=== PATIENT | male | born 1995 | race Caucasian/White ===

== ENCOUNTER 2016-09-05 10:09 | Emergency (ER) | payer OTHER ==
[~2016-09-05] VITALS: Ht 172.7 cm; Wt 83.9 kg
[2016-09-05 10:16] VITALS: BP 148/82
--- NOTE | 2016-09-05 10:20 | NUR ---
PATIENT TO BED 3 AT THIS TIME.
--- NOTE | 2016-09-05 10:25 | NUR ---
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 DENIES N/V/D; SKIN IS PINK/WARM/DRY : SMALL OPEN WOUND L WRIST NO BLEEDING; AAOX4 WITH EVEN AND STEADY GAIT; LUNGS CLEAR BL; HR EVEN AND REGULAR; PT DENIES ANY FEVER, CP, SOB, OR COUGH AT THIS TIME; PATIENT STATES PAIN OF 5/10 AT THIS TIME; VSS; PATIENT POSITIONED FOR COMFORT; HOB ELEVATED; BEDRAILS UP X2; BED DOWN. ER MD MADE AWARE OF PT STATUS.
--- NOTE | 2016-09-05 10:26 | NUR ---
ER MD DR CHICAS EVALUATING PT AT BEDSIDE.
[2016-09-05 11:12] VITALS: BP 150/73
--- NOTE | 2016-09-05 11:12 | NUR ---
Patient discharged with STABLE V/S; BP 150/73; NO S/S OF HTN, HEADACHE, OR DIZZINESS; Written and verbal after care instructions given and explained. Patient verbalized understanding. Ambulatory with to car. All questions addressed prior to discharge. Advised to follow up with PMD.
== END 2016-09-05 11:12 | disposition home or self-care (01) ==
LOC: MED 10:18
DX: S61.512A Laceration without foreign body of left wrist, initial encounter (principal); W31.0XXA Contact with mining and earth-drilling machinery, initial encounter; Y93.89 Activity, other specified; Y92.89 Other specified places as the place of occurrence of the external cause; Y99.8 Other external cause status

== ENCOUNTER 2017-02-20 09:25 | Emergency (ER) | payer MEDICAID, OTHER ==
[~2017-02-20] VITALS: Ht 170.2 cm; Wt 84.4 kg
[2017-02-20 09:37] VITALS: BP 127/72
--- NOTE | 2017-02-20 09:43 | NUR ---
Patient ambulated to bed 6. RN evaluating patient at bedside.
--- NOTE | 2017-02-20 10:01 | NUR ---
21/M BIB GIRLFRIEND TO ED C/O 10 CHARLES RADIATING BEHIND BILAT EYES X2DAYS WITH NASUEA. STS WORSENING WITH LIGHT AND MOVEMENT WITH BODYACHES. DENIES HX. DENIES N/V/D; SKIN IS PINK/WARM/DRY; AAOX4 WITH EVEN AND STEADY GAIT; LUNGS CLEAR BL; HR EVEN AND REGULAR; PT DENIES ANY FEVER, CP, SOB, OR COUGH AT THIS TIME; PATIENT STATES PAIN OF 10/10 AT THIS TIME; VSS; PATIENT POSITIONED FOR COMFORT; HOB ELEVATED; BEDRAILS UP X2; BED DOWN. ER MD MADE AWARE OF PT STATUS.
--- NOTE | 2017-02-20 10:22 | NUR ---
Patient appears to be SLEEPING comfortably in bed. Vital Signs within normal limits. Respirations even and unlabored.WILL CONTINUE TO MITOR.
--- NOTE | 2017-02-20 10:30 | NUR ---
Dr. Gooden evaluating patient at bedside.
[2017-02-20] MEDS ORDERED: KETOROLAC 60 MG/2 ML VIAL IM ONE (10:40)
--- NOTE | 2017-02-20 10:47 | NUR ---
PT TAKEN TO X RAY
--- NOTE | 2017-02-20 11:04 | NUR ---
BACK FROM X RAY
--- NOTE | 2017-02-20 11:05 | NUR ---
PT STS HEADACHE 03/24 . ADMINISTERED MED PER MD ORDER. PT TOLERATED PROCEDURE WELL.
--- NOTE | 2017-02-20 11:25 | NUR ---
PT STS PAIN 5/10.Patient appears to be resting comfortably in bed. Vital Signs within normal limits. Respirations even and unlabored.WILL CONTINUE TO MONITOR.
--- NOTE | 2017-02-20 12:05 | NUR ---
Dr. Gooden reevaluating patient at bedside.
[2017-02-20 12:12] VITALS: BP 119/68
== END 2017-02-20 12:12 | disposition home or self-care (01) ==
LOC: MED 09:25
DX: S09.90XA Unspecified injury of head, initial encounter (principal); R03.0 Elevated blood-pressure reading, without diagnosis of hypertension; R11.0 Nausea; V89.2XXA Person injured in unspecified motor-vehicle accident, traffic, initial encounter; Y93.89 Activity, other specified; Y92.415 Exit ramp or entrance ramp of street or highway as the place of occurrence of the external cause; Y99.8 Other external cause status
CPT/HCPCS: 70250; 72040; 96372; 99284; J1885

== ENCOUNTER 2017-02-20 23:50 | Emergency (ER) | payer MEDICAID ==
[~2017-02-20] VITALS: Ht 170.2 cm; Wt 84.8 kg
[2017-02-20 23:54] VITALS: BP 125/65
--- NOTE | 2017-02-21 00:30 | NUR ---
PT TAKEN TO BED 6
--- NOTE | 2017-02-21 00:31 | NUR ---
21/M C/O HEADACHE SINCE THIS MORNING. PT STATES HE WAS SEEN HERE THIS AM FOR HEADACHE AND GIVEN IBUPROFEN AND IS NOW THROWING UP. DENIES FEVER OR CHILLS. AOX4, AMBULATES WITH STEADY GAIT. NO VOMITING NOTED AT THIS TIME.
--- NOTE | 2017-02-21 00:50 | NUR ---
Dr. Paniagua evaluating patient at bedside.
[2017-02-21] MEDS: KETOROLAC 60 MG/2 ML VIAL IM ONE (00:56)
--- NOTE | 2017-02-21 00:57 | NUR ---
Warm blanket provided. Position of comfort. VSS. No distress noted.
--- NOTE | 2017-02-21 01:32 | NUR ---
Patient appears to be resting comfortably in bed. VSS.
[2017-02-21 01:57] VITALS: BP 123/67
--- NOTE | 2017-02-21 01:57 | NUR ---
Patient discharged with v/s stable. Written and verbal after care instructions given and explained. Patient verbalized understanding. Ambulatory with steady gait. All questions addressed prior to discharge. Advised to follow up with PMD.
== END 2017-02-21 01:57 | disposition home or self-care (01) ==
LOC: MED 23:50
DX: F07.81 Postconcussional syndrome (principal)
CPT/HCPCS: 70450; 96372; 99284; J1885

== ENCOUNTER 2019-02-10 20:21 | Emergency (ER) | payer SELFPAY ==
[~2019-02-10] VITALS: Ht 170.2 cm; Wt 88.5 kg
[2019-02-10 20:25] VITALS: BP 135/77
--- NOTE | 2019-02-10 20:26 | NUR ---
23 YO MALES COMES TO ED FOR C/O L HAND; FINGERS SWELLING. PT STATES HE WAS WORKING ON CAR AND HAD BUG BITES X 3 DAYS AGO, WITH SWELLING LATER ON IN THE DAY. PT STATES SWELLING WORST TODAY. PT HAS 7/10 TINGLING RADIATING TO L ARM. PT DENIES FEVER/CHILLS. LIMITED ROM TO L HAND. BRANDTRNEY LOCKED IN LOWEST POSITION. WILL UPDATE ERMD. HX: DENIES ALLERGIES:DENIES
[2019-02-10] MEDS ORDERED: ceFAZolin 1,000 MG VIAL IM ONE (21:00)
[2019-02-10] MEDS ORDERED: WATER STERILE 10 ML MC ONE (21:17)
--- NOTE | 2019-02-10 22:12 | NUR ---
Patient discharged with v/s stable. Written and verbal after care instructions given and explained BY DR ESPINO Patient alert, oriented and verbalized understanding of instructions. Ambulatory with steady gait. All questions addressed prior to discharge. ID band removed. Patient advised to follow up with PMD. Rx of KEFLEX given. Patient educated on indication of medication including possible reaction and side effects BY DR. ESPINO. Opportunity to ask questions provided and answered BY DR ESPINO.
[2019-02-10 22:15] VITALS: BP 135/77
== END 2019-02-10 22:12 | disposition home or self-care (01) ==
LOC: MED 20:21
DX: S60.461A Insect bite (nonvenomous) of left index finger, initial encounter (principal); S60.463A Insect bite (nonvenomous) of left middle finger, initial encounter; S60.465A Insect bite (nonvenomous) of left ring finger, initial encounter; L03.012 Cellulitis of left finger; W57.XXXA Bitten or stung by nonvenomous insect and other nonvenomous arthropods, initial encounter; Y93.89 Activity, other specified; Y92.89 Other specified places as the place of occurrence of the external cause; Y99.8 Other external cause status
CPT/HCPCS: 90471; 90715; 96372; 99283; J0690

== ENCOUNTER 2019-04-15 10:11 | Emergency (ER) | payer MEDICAID ==
[~2019-04-15] VITALS: Ht 170.2 cm; Wt 47.6 kg
[2019-04-15 10:17] VITALS: BP 147/95
[2019-04-15] MEDS: ACETAMINOPHEN EXTRA STRENGTH 500 MG TAB PO ONE (12:09)
[2019-04-15] MEDS: TRANEXAMIC ACID 1,000 MG/10 ML VIAL MC ONE (12:38)
[2019-04-15 14:44] VITALS: BP 147/75
== END 2019-04-15 14:44 | disposition home or self-care (01) ==
LOC: MED 10:11
DX: R04.0 Epistaxis (principal)
CPT/HCPCS: 30901; 99284; J3490

== ENCOUNTER 2020-10-22 21:41 | Emergency (ER) | payer MEDICAID, OTHER ==
[~2020-10-22] VITALS: Ht 172.7 cm; Wt 90.7 kg
[2020-10-22 21:56] VITALS: BP 127/82
--- NOTE | 2020-10-22 21:56 | NUR ---
TO BED AMBULATORY
--- NOTE | 2020-10-22 22:40 | NUR ---
25 Y/O MALE PRESENTS TO ER WITH C/O HEMATURIA X 1 DAY. 0/10 PAIN. PT STATES HE HAS HAD 3 VOIDS TODAY WITH BLOOD. PT ALSO STATES HE HAS HAD SOME CLEAR PENILE DISCHARGE. NOT SURE IF ANY EXPOSURE TO STD'S. DENIES INJURY TO BACK OR GENITAL AREA, PAINFUL URINATION, N/V/D, FEVER, DIZZINESS, HEADACHE, SOB, COUGH. A&O X4, VSS, R/R EQUAL, AND UNLABORED. SIDE RAIL X1, BED IN LOW POSITION, WILL CONTINUE TO MONITOR. NKDA PMH: TESTICULAR TORSION X 5YRS AGO
[2020-10-22] MEDS ORDERED: cefTRIAXone 500 MG in LIDOCAINE MPF 1% 1 ML IM ONE (22:45)
[2020-10-22] MEDS ORDERED: LIDOCAINE MPF 1% 5 ML ONE (22:56)
[2020-10-22] MEDS ORDERED: cefTRIAXone 500 MG VIAL ONE (22:56)
[2020-10-22 22:58] LABS: APPEARANCE,URINE SL CLOUDY (CLEAR); BILIRUBIN,URINE NEGATIVE (NEGATIVE); BLOOD, URINE 3+ (NEGATIVE); COLOR,URINE YELLOW (YELLOW); LEUKOCYTE ESTERASE ,URINE 2+ (NEGATIVE); NITRITE, URINE NEGATIVE (NEGATIVE); UGLUCOSE NEGATIVE (NEGATIVE)
[2020-10-22] MEDS ORDERED: PYR100 PO (23:09)
[2020-10-22] MEDS ORDERED: DOXY100C9 PO (23:09)
[2020-10-22 23:20] LABS: RBC,URINE 20-50 /HPF (0-5); WBC,URINE TOO MANY TO COUNT /HPF (0-5)
[2020-10-22 23:24] LABS: BARBITURATE, URINE NEGATIVE ng/ml (NEG <=200)
[2020-10-22 23:25] LABS: BENZODIAZEPINE, URINE NEGATIVE ng/mL (NEG <=200); CANNABINOID, URINE NEGATIVE ng/mL (NEG <=50); COCAINE, URINE NEGATIVE ng/mL (NEG <=300); OPIATE, URINE NEGATIVE ng/mL (NEG <=2000); PHENCYCLIDINE SCREEN,URINE NEGATIVE ng/mL (NEG <=25)
--- NOTE | 2020-10-22 23:25 | NUR ---
Patient discharged with v/s stable. Written and verbal after care instructions given and explained. Patient alert, oriented and verbalized understanding of instructions. Ambulatory with steady gait. All questions addressed prior to discharge. ID band removed. Patient advised to follow up with PMD. Rx of DOXYCYCLINE; PYRIDIUM given. Patient educated on indication of medication including possible reaction and side effects. Opportunity to ask questions provided and answered.
[2020-10-22 23:26] VITALS: BP 127/82
--- NOTE | 2020-10-26 09:05 | NUR ---
LATE ENTRY---Culture results received from lab. Pt Gonorrhoeae POSITIVE. Results shown to Dr. Glass.
== END 2020-10-22 23:25 | disposition home or self-care (01) ==
LOC: MED 21:41
DX: N34.2 Other urethritis (principal)
CPT/HCPCS: 36415; 80305; 81001; 87086; 96372; 99283; J0696; J2001; 87491

== ENCOUNTER 2021-01-12 10:59 | Emergency (ER) | payer OTHER ==
[~2021-01-12] VITALS: Ht 177.8 cm; Wt 86.2 kg
[~2021-01-12 10:59] MED LIST: DOXY100C9 PO; PYR100 PO
[2021-01-12 11:01] VITALS: BP 156/72
--- NOTE | 2021-01-12 11:02 | NUR ---
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 BLEEDING CONTROLLED AT THIS TIME. PATIENT DENIES PAIN JUST FEELING IN SHOCK. PALPATION CAUSES DISCOMFORT. AAOX4. VSS. NO PMH NKDA
[2021-01-12] MEDS ORDERED: LIDOCAINE/EPI 1% 1:100000 20 ML VIAL INJ ONE (11:05)
[2021-01-12] MEDS ORDERED: HYDROcodone/APAP 5/325 MG 1 TAB TAB PO ONE (11:05)
--- NOTE | 2021-01-12 11:07 | NUR ---
RAD at bedside.
--- NOTE | 2021-01-12 11:50 | NUR ---
LEODAN MORENO at bedside for procedure
[2021-01-12] MEDS ORDERED: BACITRACIN OINT 500 UNITS/GM PKT TP ONE ×2 (12:39→12:45)
--- NOTE | 2021-01-12 12:45 | NUR ---
ERMD at bedside for re-examination of patient
[2021-01-12] MEDS ORDERED: CEPH-588 PO (13:03)
[2021-01-12] MEDS ORDERED: cephALEXin 500 MG CAP PO ONE (13:05)
[2021-01-12 13:20] VITALS: BP 144/74
== END 2021-01-12 13:20 | disposition home or self-care (01) ==
LOC: MED 10:59
DX: S81.011A Laceration without foreign body, right knee, initial encounter (principal); W26.8XXA Contact with other sharp object(s), not elsewhere classified, initial encounter; Y93.89 Activity, other specified; Y92.89 Other specified places as the place of occurrence of the external cause; Y99.8 Other external cause status
CPT/HCPCS: 12002; 73590; 99283; J2001; 73560; 99284

== ENCOUNTER 2021-10-21 18:14 | Emergency (ER) | payer OTHER ==
[~2021-10-21] VITALS: Ht 172.7 cm; Wt 98.4 kg
[~2021-10-21 18:14] MED LIST changes: +CEPH-588 PO; +DOXY-690 PO; -DOXY100C9 PO
[2021-10-21 18:17] VITALS: BP 153/98
[2021-10-21] MEDS ORDERED: BACITRACIN OINT 500 UNITS/GM PKT TP ONE (19:15)
[2021-10-21] MEDS ORDERED: AMOX-999 PO (19:32)
[2021-10-21] MEDS ORDERED: NAPR-54 PO (19:32)
[2021-10-21 19:41] VITALS: BP 153/98
--- NOTE | 2021-10-21 19:41 | NUR ---
Patient discharged with v/s stable. Written and verbal after care instructions given and explained. Patient alert, oriented and verbalized understanding of instructions. Ambulatory with steady gait. All questions addressed prior to discharge. ID band removed. Patient advised to follow up with PMD. Rx of AMOXICILLIN NAPROXEN given. Patient educated on indication of medication including possible reaction and side effects. Opportunity to ask questions provided and answered.
== END 2021-10-21 19:44 | disposition home or self-care (01) ==
LOC: MED 18:14
DX: S61.252A Open bite of right middle finger without damage to nail, initial encounter (principal); Z79.899 Other long term (current) drug therapy; W54.0XXA Bitten by dog, initial encounter; Y93.89 Activity, other specified; Y92.89 Other specified places as the place of occurrence of the external cause; Y99.8 Other external cause status
CPT/HCPCS: 99283

== ENCOUNTER 2021-11-14 03:59 | Emergency (ER) | payer OTHER ==
[~2021-11-14] VITALS: Ht 160 cm; Wt 102.1 kg
[~2021-11-14 03:59] MED LIST changes: +AMOX-999 PO; +NAPR-54 PO
[2021-11-14] MEDS ORDERED: DICYCLOMINE HCL LIQUID 20 MG, ALUMINUM HYD/MAG/SIMETHICONE 30 ML, LIDOCAINE VISCOUS 2% ... PO ONE ×3 (04:10)
[2021-11-14 04:20] VITALS: BP 148/77
--- NOTE | 2021-11-14 04:20 | NUR ---
PATIENT AMBULATORY TO BED.
[2021-11-14] MEDS ORDERED: DICYCLOMINE HCL LIQUID 10 MG/5 ML UDC ONE (04:43)
[2021-11-14] MEDS ORDERED: ALUMINUM HYD/MAG/SIMETHICONE 30 ML UDC ONE (04:43)
--- NOTE | 2021-11-14 04:45 | NUR ---
xray at bedside
--- NOTE | 2021-11-14 05:02 | NUR ---
26 y/o m bib self for heartburn x3 days . pt wokeup from sleep with pain in chest. pt also states bloating . pt denies n/f/v/sob/d/ cough. pt states he got in an accident and has a hernia. pt states no pain at hernia site. pt states pain / allergies:NKA pmh: none
[2021-11-14] MEDS ORDERED: BEN10 PO (06:09)
[2021-11-14] MEDS ORDERED: MAG-27 PO (06:09)
[2021-11-14] MEDS ORDERED: DOCU-299 PO (06:09)
[2021-11-14 06:18] VITALS: BP 148/77
--- NOTE | 2021-11-14 06:18 | NUR ---
Patient discharged with v/s stable. Written and verbal after care instructions given and explained. Patient alert, oriented and verbalized understanding of instructions. Ambulatory with steady gait. All questions addressed prior to discharge. ID band removed. Patient advised to follow up with PMD. Rx of JONATHAN KHAN MYLANTA given. Opportunity to ask questions provided and answered.
== END 2021-11-14 06:18 | disposition home or self-care (01) ==
LOC: MED 03:59
DX: K21.9 Gastro-esophageal reflux disease without esophagitis (principal); Z79.899 Other long term (current) drug therapy; Z79.1 Long term (current) use of non-steroidal anti-inflammatories (NSAID); Z79.2 Long term (current) use of antibiotics
CPT/HCPCS: 74018; 99283; Q0092

== ENCOUNTER 2021-12-11 00:37 | Emergency (ER) | payer OTHER ==
[~2021-12-11] VITALS: Ht 167.6 cm; Wt 101.2 kg
[~2021-12-11 00:37] MED LIST changes: +BEN10 PO; +DOCU-299 PO; +MAG-27 PO
[2021-12-11 00:50] VITALS: BP 142/86
--- NOTE | 2021-12-11 00:54 | NUR ---
PATIENT TO LOBBY
--- NOTE | 2021-12-11 01:17 | NUR ---
PT TAKEN TO BED 11
--- NOTE | 2021-12-11 01:18 | NUR ---
Dr. Paniagua examining patient.
[2021-12-11] MEDS ORDERED: IBUPROFEN 600 MG TAB PO ONE ×2 (01:20→01:50)
--- NOTE | 2021-12-11 01:28 | NUR ---
26 Y/O MNALE BIBS FROM HOME, C/O RIGHT SHOULDER PAIN X3HRS AGO. PT STATES HE FELL ON TOP OF A BOULDER & "HEARD A POP". DENIES TAKING ANY PAIN MEDICATON. ICED THE SITE. LIMITED ROM; CMS INTACT, "TINGLES DOWN THE WHOLE ARM," 10/10 PAIN. A/OX4, GCS-15; AMBULATORY; UNLABORED BREATHING. NO OBVIOUS TRAUMA OR DEFORMITY, NO REDNESS/BRUISING/SWELLING. PT SEATED IN BED WITH HOB RAISED, BED IN LOWEST POSITION, AND RAIL UP X1. PMH: DENIES NKA MED: PEPCID
--- NOTE | 2021-12-11 01:38 | NUR ---
X-Ray at bedside.
[2021-12-11] MEDS ORDERED: NAPR-54 PO (02:02)
[2021-12-11 02:15] VITALS: BP 142/86
--- NOTE | 2021-12-11 02:15 | NUR ---
Patient discharged with v/s stable. Written and verbal after care instructions given and explained by TRUONG Patient alert, oriented and verbalized understanding of instructions. Ambulatory with steady gait. All questions addressed prior to discharge. ID band removed. Patient advised to follow up with PMD. Rx of naprosyn given. Patient educated on indication of medication including possible reaction and side effects. Opportunity to ask questions provided and answered.
== END 2021-12-11 02:15 | disposition home or self-care (01) ==
LOC: MED 00:37
DX: S43.401A Unspecified sprain of right shoulder joint, initial encounter (principal); K21.9 Gastro-esophageal reflux disease without esophagitis; Z79.1 Long term (current) use of non-steroidal anti-inflammatories (NSAID); Z79.899 Other long term (current) drug therapy; Z79.2 Long term (current) use of antibiotics; W01.0XXA Fall on same level from slipping, tripping and stumbling without subsequent striking against object, initial encounter; Y92.89 Other specified places as the place of occurrence of the external cause; Y93.89 Activity, other specified; Y99.8 Other external cause status
CPT/HCPCS: 73030; 99283; Q0092

== ENCOUNTER 2022-07-29 10:08 | Emergency (ER) | payer MEDICAID, OTHER ==
[~2022-07-29] VITALS: Ht 170.2 cm; Wt 90.7 kg
[2022-07-29 10:12] VITALS: BP 148/77
--- NOTE | 2022-07-29 10:21 | NUR ---
26 Y/O MALE BIB C/O RIGHT FOOT PAIN S/P JUMPING OFF THE CURB, PT STATES THAT HE "FELT A POP", FOOT WRAPPED IN YANDY WRAP AT THIS TIME CORY PMH: DENIES
--- NOTE | 2022-07-29 10:22 | NUR ---
PT TAKEN TO XRAY VIA WC
[2022-07-29] MEDS ORDERED: ACETAMINOPHEN EXTRA STRENGTH 500 MG TAB PO ONE (10:40)
[2022-07-29] MEDS ORDERED: IBUPROFEN 600 MG TAB PO ONE (10:40)
--- NOTE | 2022-07-29 10:47 | NUR ---
YANDY WRAP X 1 TO R ANKLE.
[2022-07-29] MEDS ORDERED: NAPR-54 PO (10:52)
--- NOTE | 2022-07-29 10:58 | NUR ---
Patient discharged with v/s stable. Written and verbal after care instructions ABOUT ANKLE SPRAIN given and explained. Patient alert, oriented and verbalized understanding of instructions. Ambulatory with steady gait. All questions addressed prior to discharge. ID band removed. Patient advised to follow up with PMD. Rx of NAPROXEN given. Patient educated on indication of medication including possible reaction and side effects. Opportunity to ask questions provided and answered.
== END 2022-07-29 10:58 | disposition home or self-care (01) ==
LOC: MED 10:08
DX: S93.401A Sprain of unspecified ligament of right ankle, initial encounter (principal); K21.9 Gastro-esophageal reflux disease without esophagitis; Z79.899 Other long term (current) drug therapy; W01.0XXA Fall on same level from slipping, tripping and stumbling without subsequent striking against object, initial encounter; Y93.89 Activity, other specified; Y92.89 Other specified places as the place of occurrence of the external cause; Y99.8 Other external cause status
CPT/HCPCS: 73610; 73630; 99284

== ENCOUNTER 2023-04-22 13:43 | Inpatient (IN) | payer MEDICAID ==
[~2023-04-22] VITALS: Ht 172.7 cm; Wt 95.3 kg
[~2023-04-22 13:43] MED LIST changes: +PIPERACILLIN/TAZOBACTAM 3.375 GM in DEXTROSE 5% 50 ML IV STA
[2023-04-22 14:22] VITALS: BP 127/88; PULSE 103; RESP 18; TEMP 98.1; O2SAT 99
[2023-04-22 14:54] LABS: APPEARANCE,URINE CLEAR (CLEAR); BILIRUBIN,URINE NEGATIVE (NEGATIVE); BLOOD, URINE NEGATIVE (NEGATIVE); COLOR,URINE YELLOW (YELLOW); LEUKOCYTE ESTERASE ,URINE NEGATIVE (NEGATIVE); NITRITE, URINE NEGATIVE (NEGATIVE); PROTEIN,URINE NEGATIVE (NEGATIVE); UGLUCOSE NEGATIVE (NEGATIVE); UROBILINOGEN,URINE 0.2 EU/dL (0.2 - 1)
[2023-04-22 15:38] LABS: ANION GAP 10.2 (8-16); CARBON DIOXIDE 29.7 mmol/L (21-32); CREATININE 1.1 mg/dL (0.6-1.3); POTASSIUM 3.9 mmol/L (3.5-5.1); TOTAL BILIRUBIN 0.3 mg/dL (0.0-1.0); TOTAL PROTEIN, SERUM 7.7 g/dL (6.4-8.2)
[2023-04-22 15:44] LABS: BASOPHILS % (AUTO) 0.5 % (0.0-2.0); EOSINOPHILS # (AUTO) 0.2 K/uL (0-0.4); EOSINOPHILS % (AUTO) 2.2 % (0.0-4.0); HEMATOCRIT 46.9 % (36-52); HEMOGLOBIN 15.9 g/dL (12.0-18.0); LYMPHOCYTES # (AUTO) 1.6 K/uL (2.0-11.5); LYMPHOCYTES % (AUTO) 19.7 % (20.5-51.1); MEAN CORPUSCULAR HEMOGLOBIN 30 pg (27-31); MEAN CORPUSCULAR HGB CONC 34 g/dL (33-37); MEAN CORPUSCULAR VOLUME 87.9 fL (80-94); MONOCYTES # (AUTO) 0.9 K/uL (0.8-1.0); MONOCYTES % (AUTO) 10.3 % (1.7-9.3); NEUTROPHILS # (AUTO) 5.6 K/uL (1.8-7.7); NEUTROPHILS % (AUTO) 67.3 % (42.2-75.2); PLATELET COUNT (AUTO) 227 K/uL (140-450); RED BLOOD CELL COUNT(AUTO) 5.34 MIL/uL (4.20-6.10); RED CELL DISTRIBUTION WIDTH 14.3 % (11.6-13.7); WHITE BLOOD COUNT (AUTO) 8.3 K/uL (4.8-10.8)
[2023-04-22] MEDS ORDERED: PIPERACILLIN/TAZOBACTAM 3.375 GM in DEXTROSE 5% 50 ML IV ONE (15:45)
[2023-04-22] MEDS ORDERED: NACL 0.9% 1,000 ML IV ONE (15:45)
[2023-04-22] MEDS ORDERED: MORPHINE SULFATE 4 MG/ML SYR IVP ONE (16:20)
[2023-04-22] MEDS ORDERED: PIPERACILLIN/TAZOBACTAM 3.375 GM VIAL IV ONE ×2 (16:24→23:37)
[2023-04-22] MEDS ORDERED: MORPHINE SULFATE 2 MG/ML SYR IVP PRN (16:40)
[2023-04-22] MEDS ORDERED: ONDANSETRON 4 MG/2 ML VIAL IVP PRN (16:40)
[2023-04-22] MEDS: NACL 0.9% 1,000 ML IV SCH (17:22)
[2023-04-22] MEDS ORDERED: ceFAZolin 2,000 MG VIAL ONE (19:38)
[2023-04-22] MEDS ORDERED: BUPIVACAINE-MPF 0.25% 30 ML VIAL INJ ONE (19:39)
[2023-04-22] MEDS ORDERED: ceFAZolin 2,000 MG VIAL IVP ONE (20:00)
[2023-04-22] MEDS ORDERED: PIPERACILLIN/TAZOBACTAM 3.375 GM in DEXTROSE 5% 50 ML IV SCH (21:00)
[2023-04-22] MEDS ORDERED: HYDROmorphone 1 MG/ML AMP IVP PRN (22:05)
[2023-04-22 22:50] VITALS: PULSE 81; RESP 18; O2SAT 95
[2023-04-23] MEDS ORDERED: PIPERACILLIN/TAZOBACTAM 3.375 GM in DEXTROSE 5% 50 ML IV NR ×2
[2023-04-23] MEDS: NACL 0.9% 1,000 ML IV SCH ×2 (02:43→09:35)
[2023-04-23 04:00] VITALS: BP 122/66; PULSE 93; RESP 19; TEMP 99; O2SAT 96
[2023-04-23 06:31] LABS: BASOPHILS % (AUTO) 0.1 % (0.0-2.0); HEMATOCRIT 47.2 % (36-52); HEMOGLOBIN 15.8 g/dL (12.0-18.0); LYMPHOCYTES # (AUTO) 0.6 K/uL (2.0-11.5); LYMPHOCYTES % (AUTO) 4.4 % (20.5-51.1); MEAN CORPUSCULAR HEMOGLOBIN 30 pg (27-31); MEAN CORPUSCULAR HGB CONC 33 g/dL (33-37); MEAN CORPUSCULAR VOLUME 88.7 fL (80-94); MONOCYTES # (AUTO) 0.7 K/uL (0.8-1.0); MONOCYTES % (AUTO) 4.6 % (1.7-9.3); NEUTROPHILS % (AUTO) 90.9 % (42.2-75.2); PLATELET COUNT (AUTO) 238 K/uL (140-450); RED BLOOD CELL COUNT(AUTO) 5.32 MIL/uL (4.20-6.10); RED CELL DISTRIBUTION WIDTH 14.6 % (11.6-13.7); WHITE BLOOD COUNT (AUTO) 14.3 K/uL (4.8-10.8)
[2023-04-23 06:36] LABS: ALBUMIN 3.6 g/dL (3.4-5.0); ANION GAP 9.7 (8-16); CALCIUM 8.4 mg/dL (8.5-10.1); CARBON DIOXIDE 27.5 mmol/L (21-32); POTASSIUM 4.2 mmol/L (3.5-5.1); TOTAL BILIRUBIN 0.7 mg/dL (0.0-1.0); TOTAL PROTEIN, SERUM 7.3 g/dL (6.4-8.2)
[2023-04-23 08:00] VITALS: PULSE 84; RESP 20; O2SAT 97
[2023-04-23] MEDS ORDERED: PIPERACILLIN/TAZOBACTAM 3.375 GM in DEXTROSE 5% 50 ML IV SCH ×4 (09:25→21:00)
[2023-04-23] MEDS ORDERED: LEVO750T75 PO (13:32)
[2023-04-23] MEDS ORDERED: DOCU-299 PO (13:32)
[2023-04-23 14:18] VITALS: BP 122/66; PULSE 84; RESP 20; TEMP 99
== END 2023-04-23 15:53 | disposition home or self-care (01) | DRG 224 ==
LOC: MED 13:43 → MTU 16:43
PROVIDERS: ADMIT Internal Medicine; ATTEND Internal Medicine
PROC: 0DNU4ZZ Release Omentum, Percutaneous Endoscopic Approach (ICD-10-PCS; 2023-04-22)
PROC: 0DTJ4ZZ Resection of Appendix, Percutaneous Endoscopic Approach (ICD-10-PCS; principal; 2023-04-22 19:00)
DX: K35.80 Unspecified acute appendicitis (principal); E66.9 Obesity, unspecified; K21.9 Gastro-esophageal reflux disease without esophagitis; K40.90 Unilateral inguinal hernia, without obstruction or gangrene, not specified as recurrent; Z68.31 Body mass index [BMI] 31.0-31.9, adult
CPT/HCPCS: 36415; 80053; 81003; 83690; 83735; 85025; 87040; 87081; 88304; 96374; 96375; 99285; J2270; J2543; J3490; J7060; J7120

== ENCOUNTER 2023-05-15 20:11 | Emergency (ER) | payer MEDICAID ==
[~2023-05-15] VITALS: Ht 172.7 cm; Wt 93.0 kg
[~2023-05-15 20:11] MED LIST changes: -AMOX-999 PO; -BEN10 PO; -CEPH-588 PO; -DOXY-690 PO; +LEVO750T75 PO; -MAG-27 PO; -NAPR-54 PO; -PIPERACILLIN/TAZOBACTAM 3.375 GM in DEXTROSE 5% 50 ML IV STA; -PYR100 PO
[2023-05-15 20:54] VITALS: BP 124/76; PULSE 71; RESP 16; TEMP 96.1; O2SAT 24
== END 2023-05-16 00:55 | disposition home or self-care (01) ==
LOC: MED 20:11
DX: S50.12XA Contusion of left forearm, initial encounter (principal); K21.9 Gastro-esophageal reflux disease without esophagitis; Z79.899 Other long term (current) drug therapy; Z79.2 Long term (current) use of antibiotics; W01.0XXA Fall on same level from slipping, tripping and stumbling without subsequent striking against object, initial encounter; Y92.89 Other specified places as the place of occurrence of the external cause; Y93.89 Activity, other specified; Y99.8 Other external cause status
CPT/HCPCS: 73090; 99283

== ENCOUNTER 2023-08-04 14:43 | Emergency (ER) | payer MEDICAID ==
[~2023-08-04] VITALS: Ht 170.2 cm; Wt 94.3 kg
[2023-08-04 15:04] VITALS: BP 126/71; PULSE 100; RESP 16; TEMP 99.4; O2SAT 98
== END 2023-08-04 18:45 | disposition left against medical advice (07) ==
LOC: MED 14:43
DX: R05.9 Cough, unspecified (principal); R09.81 Nasal congestion; R51.9 Headache, unspecified; Z53.21 Procedure and treatment not carried out due to patient leaving prior to being seen by health care provider
CPT/HCPCS: 99281